=== PATIENT | female | born 1935 | race Caucasian/White ===

== ENCOUNTER 2020-11-01 12:29 | Inpatient (IN) | payer OTHER ==
--- NOTE | 2020-11-01 15:50 | ER ---
Nurse's Notes [facility] Name: Fabiola Infante Age: 85 yrs Sex: Female : 1935 Arrival Date: 11/01/2020 Time: 12:31 Bed 5 Private MD: Diagnosis: Altered mental status, unspecified;UTI/ Urinary tract infection, site not specified-ESBL, Pseudomonas;Dementia in other diseases classified elsewhere without behavioral disturbance Presentation: 11/01 13:00 Chief complaint: Pt's daughter states "she went to an ER in [place] and they called her aa5 today and told her that the antibiotics for the UTI are not working so she needs IV antibiotics". Pt's daughter reports "she's just been tired and weak". 13:00 Coronavirus screen: fatigue. Ebola Screen: Patient negative for fever greater than or aa5 equal to 101.5 degrees Fahrenheit, and additional compatible Ebola Virus Disease symptoms. Initial Sepsis Screen: Does the patient meet any 2 criteria? No. Patient's initial sepsis screen is negative. Does the patient have a suspected source of infection? Yes: Dysuria/Frequency/Urgency/UTI. Risk Assessment: Do you want to hurt yourself or someone else? Unable to obtain. Onset of symptoms was November 01, 2020. 13:00 Acuity: KITTY 3 aa5 13:00 Method Of Arrival: Wheelchair aa5 Historical: - Allergies: 13:03 Aspirin; aa5 - Home Meds: 13:03 Atenolol Oral [Active]; Furosemide Oral [Active]; omeprazole Oral [Active]; Iron CR aa5 Oral [Active]; Potassium Chloride Oral [Active]; - PMHx: 13:03 Pulmonary Fibrosis; Hypertensive disorder; RA; aa5 - Immunization history:: Client reports having NOT received the Covid vaccine. Flu vaccine is up to date. - Social history:: Smoking status: Patient/guardian denies using tobacco. - Family history:: not pertinent. Screenin:35 Abuse screen: Denies threats or abuse. Denies injuries from another. Nutritional hb screening: No deficits noted. Tuberculosis screening: No symptoms or risk factors identified. Fall Risk None identified. Assessment: 15:36 General: Appears in no apparent distress. Behavior is calm, cooperative. Pain: Denies hb pain. Neuro: Level of Consciousness is awake, alert, obeys commands, Oriented to person, place, time, situation, Reports fatigue, generalized weakness. Cardiovascular: Patient's skin is warm and dry. Respiratory: Respiratory effort is even, unlabored, Respiratory pattern is regular, symmetrical. GI: No signs and/or symptoms were reported involving the gastrointestinal system. : No signs and/or symptoms were reported regarding the genitourinary system. EENT: No signs and/or symptoms were reported regarding the EENT system. Derm: Skin is pink, warm \\T\\ dry. Musculoskeletal: No signs and/or symptoms reported regarding the musculoskeletal system. 16:30 Reassessment: Patient appears in no apparent distress at this time. No changes from hb previously documented assessment. Patient is alert, oriented x 3, equal unlabored respirations, skin warm/dry/pink. 17:15 Reassessment: Patient appears in no apparent distress at this time. No changes from hb previously documented assessment. Patient and/or family updated on plan of care and expected duration. Pain level reassessed. Patient is alert, oriented x 3, equal unlabored respirations, skin warm/dry/pink. 18:07 Reassessment: Patient appears in no apparent distress at this time. Patient and/or hb family updated on plan of care and expected duration. Pain level reassessed. Patient is alert, oriented x 3, equal unlabored respirations, skin warm/dry/pink. Vital Signs: 13:00 BP 136 / 68; Pulse 63; Resp 18 S; Temp 98.2(TE); Pulse Ox 99% on 3 lpm NC; aa5 15:20 BP 167 / 83; Pulse 64; Resp 17; Pulse Ox 99% on 3 lpm NC; hb 17:00 BP 153 / 75; Pulse 65; Resp 15; Pulse Ox 97% on 3 lpm NC; hb 18:00 BP 160 / 99; Pulse 74; Resp 18; Pulse Ox 99% on 3 lpm NC; hb ED Course: 12:31 Patient arrived in ED. as 12:58 Arm band placed on. aa5 13:03 Triage completed. aa5 15:10 Inserted saline lock: 20 gauge in right antecubital area, using aseptic technique. hb Blood collected. 15:12 Minh Worrell MD is Attending Physician. izzy 15:35 Jenny Melara RN is Primary Nurse. hb 15:37 Patient has correct armband on for positive identification. Bed in low position. Call light in reach. 15:48 Santiago Dupont is Hospitalizing Provider. izzy 16:33 XRAY Chest (1 view) In Process Unspecified. EDMS 20:08 No provider procedures requiring assistance completed. Patient did not have IV access ea during this emergency room visit. Administered Medications: 16:11 Drug: NS 0.9% 1000 ml Route: IV; Rate: 125 ml/hr; Site: right antecubital; hb 20:09 Follow up: IV Status: Completed infusion; Infusion continued upon admission ea 16:15 Drug: Tobramycin 120 mg Route: IVPB; Infused Over: 30 mins; Site: right antecubital; bp 20:09 Follow up: Response: No adverse reaction; IV Status: Completed infusion ea 16:15 Drug: Rocephin (cefTRIAXone) 1 grams Route: IV; Rate: per protocol; Site: right bp antecubital; 20:09 Follow up: Response: No adverse reaction; IV Status: Completed infusion ea Outcome: 15:50 Decision to Hospitalize by Provider. [facility] 20:08 Admitted to Med/surg accompanied by tech, via stretcher, with chart, Report called to ea Receiving nurse on second floor 20:08 Condition: stable 20:08 Instructed on the need for admit, Demonstrated understanding of instructions. 20:09 Patient left the ED. ea Signatures: Dispatcher [employer] EDMinh Wellington MD MD cha Martinez, Amelia as Calderon, Audri, RN RN aa5 Jenny Melara RN RN Alyse Bell RN RN ea Peltier, Brian RN RN bp
--- NOTE | 2020-11-01 15:50 | EDPHYS ---
Physician Documentation [facility] Name: Fabiola Infante Age: 85 yrs Sex: Female : 1935 Arrival Date: 11/01/2020 Time: 12:31 Bed 5 Private MD: ED Physician Minh Worrell HPI: 11/01 15:43 This 85 yrs old Female presents to ER via Wheelchair with complaints of izzy Urinary Problem - iv antibiotics. 15:43 The patient presents with urinary symptoms, dysuria, frequency, urgency. Onset: The izzy symptoms/episode began/occurred 3 day(s) ago. Modifying factors: The symptoms are alleviated by nothing, the symptoms are aggravated by nothing. Associated signs and symptoms: The patient has no apparent associated signs or symptoms. Severity of symptoms: At their worst the symptoms were mild, in the emergency department the symptoms are unchanged. The patient presents with confusion. Onset: The symptoms/episode began/occurred 3 day(s) ago. Possible causes: CVA or TIA, head injury, low blood sugar, seizure, sepsis, the patient has a known UTI history. The patient is not sexually active. Historical: - Allergies: 13:03 Aspirin; aa5 - Home Meds: 13:03 Atenolol Oral [Active]; Furosemide Oral [Active]; omeprazole Oral [Active]; Iron CR aa5 Oral [Active]; Potassium Chloride Oral [Active]; - PMHx: 13:03 Pulmonary Fibrosis; Hypertensive disorder; RA; aa5 - Immunization history:: Client reports having NOT received the Covid vaccine. Flu vaccine is up to date. - Social history:: Smoking status: Patient/guardian denies using tobacco. - Family history:: not pertinent. ROS: 15:43 Constitutional: Negative for fever, chills, and weight loss, Eyes: Negative for injury, izzy pain, redness, and discharge, ENT: Negative for injury, pain, and discharge, Neck: Negative for injury, pain, and swelling, Cardiovascular: Negative for chest pain, palpitations, and edema, Respiratory: Negative for shortness of breath, cough, wheezing, and pleuritic chest pain, Abdomen/GI: Negative for abdominal pain, nausea, vomiting, diarrhea, and constipation, Back: Negative for injury and pain, Skin: Negative for injury, rash, and discoloration, Neuro: Negative for headache, weakness, numbness, tingling, and seizure, Psych: Negative for depression, anxiety, suicide ideation, homicidal ideation, and hallucinations, Allergy/Immunology: Negative for hives, rash, and allergies, Endocrine: Negative for neck swelling, polydipsia, polyuria, polyphagia, and marked weight changes, Hematologic/Lymphatic: Negative for swollen nodes, abnormal bleeding, and unusual bruising. 15:43 : Positive for urinary symptoms, urinary frequency, small amounts, hematuria, burning with urination, foul smelling urine. Exam: 15:43 Constitutional: This is a well developed, well nourished patient who is awake, alert, izzy and in no acute distress. Head/Face: Normocephalic, atraumatic. Eyes: Pupils equal round and reactive to light, extra-ocular motions intact. Lids and lashes normal. Conjunctiva and sclera are non-icteric and not injected. Cornea within normal limits. Periorbital areas with no swelling, redness, or edema. ENT: Nares patent. No nasal discharge, no septal abnormalities noted. Tympanic membranes are normal and external auditory canals are clear. Oropharynx with no redness, swelling, or masses, exudates, or evidence of obstruction, uvula midline. Mucous membranes moist. Neck: Trachea midline, no thyromegaly or masses palpated, and no cervical lymphadenopathy. Supple, full range of motion without nuchal rigidity, or vertebral point tenderness. No Meningismus. Chest/axilla: Normal chest wall appearance and motion. Nontender with no deformity. No lesions are appreciated. Cardiovascular: Regular rate and rhythm with a normal S1 and S2. No gallops, murmurs, or rubs. Normal PMI, no JVD. No pulse deficits. Respiratory: Lungs have equal breath sounds bilaterally, clear to auscultation and percussion. No rales, rhonchi or wheezes noted. No increased work of breathing, no retractions or nasal flaring. Abdomen/GI: Soft, non-tender, with normal bowel sounds. No distension or tympany. No guarding or rebound. No evidence of tenderness throughout. Back: No spinal tenderness. No costovertebral tenderness. Full range of motion. Skin: Warm, dry with normal turgor. Normal color with no rashes, no lesions, and no evidence of cellulitis. MS/ Extremity: Pulses equal, no cyanosis. Neurovascular intact. Full, normal range of motion. Neuro: Awake and alert, GCS 15, oriented to person, place, time, and situation. Cranial nerves II-XII grossly intact. Motor strength 5/5 in all extremities. Sensory grossly intact. Cerebellar exam normal. Normal gait. Psych: Awake, alert, with orientation to person, place and time. Behavior, mood, and affect are within normal limits. 18:27 ECG was reviewed by the Attending Physician. izzy Vital Signs: 13:00 BP 136 / 68; Pulse 63; Resp 18 S; Temp 98.2(TE); Pulse Ox 99% on 3 lpm NC; aa5 15:20 BP 167 / 83; Pulse 64; Resp 17; Pulse Ox 99% on 3 lpm NC; hb 17:00 BP 153 / 75; Pulse 65; Resp 15; Pulse Ox 97% on 3 lpm NC; hb 18:00 BP 160 / 99; Pulse 74; Resp 18; Pulse Ox 99% on 3 lpm NC; hb MDM: 15:12 Patient medically screened. izzy 15:45 Differential diagnosis: nonspecific abdominal pain, urinary tract infection. izzy Differential Diagnosis: CVA, electrolyte abnormality, hypoglycemia, TIA, UTI, volume depletion. Data reviewed: vital signs, nurses notes, lab test result(s), EKG, radiologic studies, plain films. Data interpreted: radiation monitor: rate is 63 beats/min, Pulse oximetry: is not applicable for this patient encounter. Test interpretation: by ED physician or midlevel provider: ECG, plain radiologic studies. Counseling: I had a detailed discussion with the patient and/or guardian regarding: the historical points, exam findings, and any diagnostic results supporting the discharge/admit diagnosis, lab results, radiology results, the need for further work-up and treatment in the hospital. 11/01 15:42 Order name: Basic Metabolic Panel [facility] 11/01 15:42 Order name: CBC with Diff; Complete Time: 17:03 [facility] 11/01 15:42 Order name: LFT's; Complete Time: 17:03 [facility] 11/01 15:42 Order name: Magnesium; Complete Time: 17:03 11/01 15:42 Order name: NT PRO-BNP; Complete Time: 17:03 [facility] 11/01 15:42 Order name: PT-INR; Complete Time: 17:03 11/01 15:42 Order name: Troponin (emerg Dept Use Only); Complete Time: 17:03 [facility] 11/01 15:42 Order name: XRAY Chest (1 view); Complete Time: 17:03 [facility] 11/01 15:42 Order name: Urine Culture [facility] 11/01 15:42 Order name: COVID-19 : Document "Date of Symptom Onset" if Symptomatic. [facility] 11/01 15:43 Order name: Basic Metabolic Panel; Complete Time: 17:03 [facility] 11/01 17:03 Order name: Urine Dipstick-Ancillary [facility] 11/01 18:37 Order name: SARS-COV-2 RT PCR [facility] 11/01 15:42 Order name: EKG; Complete Time: 15:43 [facility] 11/01 15:42 Order name: Cardiac monitoring; Complete Time: 17:31 [facility] 11/01 15:42 Order name: EKG - Nurse/Tech; Complete Time: 18:04 [facility] 11/01 15:42 Order name: IV Saline Lock; Complete Time: 16:17 [facility] 11/01 15:42 Order name: Labs collected and sent; Complete Time: 16:17 [facility] 11/01 15:42 Order name: O2 Per Protocol; Complete Time: 16:18 [facility] 11/01 15:42 Order name: O2 Sat Monitoring; Complete Time: 16:17 [facility] 11/01 15:42 Order name: Urine Dipstick-Ancillary (obtain specimen); Complete Time: 16:02 [facility] EC:27 Rate is 66 beats/min. Rhythm is regular. QRS Perkins is Normal. UT interval is normal. QRS izzy interval is normal. QT interval is normal. No Q waves. T waves are Normal. No ST changes noted. Clinical impression: NSR w/ Non-specific ST/T Changes and No evidence of ischemia. Interpreted by me. Reviewed by me. Administered Medications: 16:11 Drug: NS 0.9% 1000 ml Route: IV; Rate: 125 ml/hr; Site: right antecubital; hb 20:09 Follow up: IV Status: Completed infusion; Infusion continued upon admission ea 16:15 Drug: Tobramycin 120 mg Route: IVPB; Infused Over: 30 mins; Site: right antecubital; bp 20:09 Follow up: Response: No adverse reaction; IV Status: Completed infusion ea 16:15 Drug: Rocephin (cefTRIAXone) 1 grams Route: IV; Rate: per protocol; Site: right bp antecubital; 20:09 Follow up: Response: No adverse reaction; IV Status: Completed infusion ea Disposition Summary: 11/01/20 15:50 Hospitalization Ordered Hospitalization Status: Inpatient Admission izzy Provider: Santiago Dupont cha Location: Telemetry/MedSurg (Inpatient) izzy Condition: Stable izzy Problem: new izzy Symptoms: have improved izzy Bed/Room Type: Standard [facility] Room Assignment: 219(11/01/20 19:05) em1 Diagnosis - Altered mental status, unspecified izzy - UTI/ Urinary tract infection, site not specified - ESBL, Pseudomonas izzy - Dementia in other diseases classified elsewhere without behavioral disturbance izzy Forms: - Medication Reconciliation Form izzy - SBAR form izzy Signatures: Dispatcher [employer] EDMS Minh Worrell MD MD cha Martinez, Eric em1 Yris Hurt RN RN aa5 Jenny Melara RN RN Nabil Esteves RN RN bp Antunez, Elena RN ea Corrections: (The following items were deleted from the chart) 19:05 15:50 izzy em1
[2020-11-01 16:21] LABS: Absolute Lymphocytes (CBC) 2.5 K/uL (0.7-4.9); Basophils % 0.7 % (0-1.3); Hematocrit 33.8 % (36.0-45.0); Lymphocytes % 25.3 % (15.3-44.8); MPV 8.8 fL (7.6-11.3); RBC Red Blood Cell Count 4.44 M/uL (3.86-4.86)
[2020-11-01 16:22] LABS: Protime INR 1.08
[2020-11-01] MEDS ORDERED: NA CHLORIDE 0.9% 1,000 ML ONE (16:27)
[2020-11-01 16:38] LABS: ALT/SGPT 16 U/L (12-78); AST/SGOT 15 U/L (15-37); Albumin 2.7 g/dL (3.4-5.0); Alkaline Phosphatase 78 U/L (45-117); BUN Blood Urea Nitrogen 12 mg/dL (7-18); Bicarbonate 28 mmol/L (21-32); Bilirubin Direct < 0.1 mg/dL (0-0.2); Bilirubin Total 0.2 mg/dL (0.2-1.0); Glucose Level 118 mg/dL (74-106); Magnesium 1.9 mg/dL (1.8-2.4); NT PRO-BNP 2535 pg/mL (<450); Potassium 4.6 mmol/L (3.5-5.1); Protein, Total 7.5 g/dL (6.4-8.2); Sodium Level 130 mmol/L (136-145); Troponin (Emerg Dept Use Only) < 0.02 ng/mL (0.0-0.045)
--- NOTE | 2020-11-01 16:39 | P.HP ---
Certification for Inpatient Patient admitted to: Inpatient Practitioner: I am a practitioner with admitting privileges, knowledge of patient current condition, hospital course, and medical plan of care. Services: Services provided to patient in accordance with Admission requirements found in Title 42 Section 412.3 of the Code of Federal Regulations Patient History Date of Service: 11/01/20 Reason for admission: Generalize weakness History of Present Illness: 85-year-old woman with a history of rheumatoid arthritis, peripheral edema, hypertension and pulmonary fibrosis presented to the emergency department course her urine culture was growing ESBL Pseudomonas sensitive to only IV antibiotics. According to the daughter patient with a history of recurrent UTI has been progressivelly weak since her most recent diagnosis of UTI. She was prescribed Cipro by her PCP. The PCP called and informed her for urine culture is growing Pseudomonas sensitive to only IV antibiotics and therefore directed her to the emergency department. She denies any dysuria or increased urinary frequency. She endorsed loss of appetite. Daughter states she has been sleeping all day. At baseline she was able to transfer independently but now need assistance with transfer. Blood work shows hyponatremia and microcytic anemia, no leukocytosis. Daughter reports history of MCI and has impaired. A.m. making arrangements for long-term care for her. - Past Medical/Surgical History -: Hypertension -: Rheumatoid arthritis -: Pulmonary fibrosis -: Hysterectomy -: Appendectomy - Social History Smoking Status: Never smoker Alcohol use: No Place of Residence: Home Review of Systems Other: Patient denies any fever, no abdominal pain, no diarrhea, no nausea and vomiting. Except as documented, all other systems reviewed and negative. Physical Examination - Physical Exam General: Alert, In no apparent distress, Oriented x3 HEENT: Normocephalic, Mucous membr. moist/pink, Sclerae nonicteric Neck: Supple, JVD not distended Respiratory: Clear to auscultation bilaterally, Normal air movement Cardiovascular: No edema, Regular rate/rhythm, Normal S1 S2, No murmurs Capillary refill: <2 Seconds Gastrointestinal: Normal bowel sounds, Soft and benign, Non-distended, No tenderness, Other Musculoskeletal: No swelling, No tenderness Integumentary: No rashes, No erythema Neurological: Normal speech, Normal strength at 5/5 x4 extr Lymphatics: No axilla or inguinal lymphadenopathy - Studies Laboratory Data (last 24 hrs) 11/01/20 16:12: PT 12.4, INR 1.08 11/01/20 16:12: WBC 10.00, Hgb 10.9 L, Hct 33.8 L, Plt Count 403 11/01/20 16:12: Sodium 130 L, Potassium 4.6, BUN 12, Creatinine 0.85, Glucose 118 H, Magnesium 1.9, Total Bilirubin 0.2, AST 15, ALT 16, Alkaline Phosphatase 78 Assessment and Plan - Problems (Diagnosis) (1) Pseudomonas urinary tract infection Current Visit: Yes Status: Acute (2) ESBL (extended spectrum beta-lactamase) producing bacteria infection Current Visit: Yes Status: Acute (3) Pulmonary fibrosis Current Visit: Yes Status: Acute (4) Leg edema Current Visit: Yes Status: Acute - Plan Admit to the medical floor. Pseudomonas sensitive to only aminoglycosides. Start IV gentamicin. Obtain blood culture. Consult infectious disease. Repeat UA and urine culture. PT to evaluate. Lasix p.r.n. for peripheral edema. Continue other home medications. - Advance Directives Does patient have a Living Will: No Does patient have a Durable POA for Healthcare: Yes
--- NOTE | 2020-11-01 16:44 | RAD REPORT ---
EXAM DESCRIPTION: RAD - Chest Single View - 11/01/2020 4:33 pm CLINICAL HISTORY: COUGH COMPARISON: No comparisons FINDINGS: Findings likely representing chronic interstitial changes with some areas of confluent air space disease in the left mid lung and left lung base. The heart size is within normal limits.No acut e osseous abnormality. No significant pleural effusions or pneumothorax. Moderate hiatal hernia. IMPRESSION: Suspect chronic interstitial lung changes. A superimposed acute process, in the absence of priors, is difficult to exclude radiographically.
[2020-11-01] MEDS ORDERED: TOBRAMYCIN SULF 80 MG/2 ML VIAL ONE (16:45)
[2020-11-01] MEDS ORDERED: CEFTRIAXONE/SWI 1gm 1 GM/10 ML SYR ONE (16:46)
[2020-11-01] MEDS ORDERED: NA CHLORIDE 0.9% 100 ML ONE (16:46)
[2020-11-01 17:03] LABS: Urine Blood 2+ (Negative); Urine Glucose Negative (Negative); Urine Protein Trace (Negative); Urine pH 5.5 (5.0-7.0)
[2020-11-01] MEDS ORDERED: ONDANSETRON 4 MG/2 ML VIAL IV PRN (20:53)
[2020-11-01] MEDS ORDERED: ACETAMINOPHEN 650MG/RECT SUPP PR PRN (20:53)
[2020-11-01] MEDS: HEPARIN 5000 UNIT/ML 1 ML VIAL SQ SCH (21:00)
[2020-11-01] MEDS ORDERED: GENTAMICIN 80 MG/100 ML BAG 80 MG/100 ML BAG IV SCH (21:00)
[2020-11-01 23:30] VITALS: BMI 27.4
[2020-11-02] MEDS ORDERED: GENTAMICIN SULF 80 MG/2ML INJ ONE (03:34)
[2020-11-02] MEDS: Gentamicin Inj 120 MG in NA CHLORIDE 0.9% 100 ML IV SCH ×2 (05:00→17:20)
[2020-11-02 05:54] LABS: Basophils % 0.5 % (0-1.3); Hematocrit 27.5 % (36.0-45.0); Lymphocytes % 24.3 % (15.3-44.8); MPV 9.1 fL (7.6-11.3); RBC Red Blood Cell Count 3.66 M/uL (3.86-4.86)
[2020-11-02 06:09] LABS: Magnesium 1.9 mg/dL (1.8-2.4); Phosphorus 3.5 mg/dL (2.5-4.9); Potassium 4.5 mmol/L (3.5-5.1)
[2020-11-02] MEDS ORDERED: NA CHLORIDE 0.9% 100 ML ONE (06:24)
[2020-11-02 07:47] LABS: Urine Appearance CLOUDY (Clear); Urine Bilirubin NEGATIVE (Negative); Urine Blood TRACE (Negative); Urine Color YELLOW (Yellow); Urine Glucose NEGATIVE (Negative); Urine Protein NEGATIVE (Negative); Urine Specific Gravity <=1.005 (1.005-1.030); Urine Urobilinogen 0.2 mg/dL (0.2-1.0)
[2020-11-02 08:06] LABS: Urine Bacteria <20 /HPF (<20); Urine Mucus 1+ /HPF (NONE SEEN)
[2020-11-02] MEDS: HEPARIN 5000 UNIT/ML 1 ML VIAL SQ SCH ×2 (09:52→21:41)
[2020-11-02] MEDS ORDERED: HOME MED 1 EA UNK (Omeprazole [Omeprazole] 20 MG Capsule.Dr) PO SCH (11:29)
[2020-11-02] MEDS: atenoloL 50 MG TAB PO SCH (12:13)
[2020-11-02] MEDS: PANTOPRAZOLE 40MG TABLET PO SCH (12:13)
[2020-11-02] MEDS: FERROUS SULFATE 325 MG TAB PO SCH (12:13)
--- NOTE | 2020-11-02 13:12 | P.PN ---
Subjective Date of Service: 11/02/20 Chief Complaint: Generalize weakness Patient reports feeling much better today. She states she feels much stronger. Daughter reports patient was bleeding from her hemorrhoids during bowel movement today. Physical Examination - Vital Signs Temperature: 98.2 F Blood Pressure: 141/67 Pulse: 64 Respirations: 20 Pulse Ox (%): 96 - Physical Exam General: Alert, In no apparent distress, Oriented x3 HEENT: Mucous membr. moist/pink Neck: JVD not distended Respiratory: Clear to auscultation bilaterally, Normal air movement Cardiovascular: No edema, Regular rate/rhythm, Normal S1 S2 Gastrointestinal: Soft and benign, Non-distended, No tenderness Musculoskeletal: No swelling Integumentary: No rashes, No erythema Neurological: Normal strength at 5/5 x4 extr - Studies Laboratory Data (last 24 hrs) 11/01/20 16:12: PT 12.4, INR 1.08 11/01/20 16:12: WBC 10.00, Hgb 10.9 L, Hct 33.8 L, Plt Count 403 11/01/20 16:12: Sodium 130 L, Potassium 4.6, BUN 12, Creatinine 0.85, Glucose 118 H, Magnesium 1.9, Total Bilirubin 0.2, AST 15, ALT 16, Alkaline Phosphatase 78 Assessment And Plan - Current Problems (Diagnosis) (1) Pseudomonas urinary tract infection Current Visit: Yes Status: Acute (2) ESBL (extended spectrum beta-lactamase) producing bacteria infection Current Visit: Yes Status: Acute (3) Pulmonary fibrosis Current Visit: Yes Status: Acute (4) Leg edema Current Visit: Yes Status: Acute - Plan Continue IV gentamicin. UA suggest UTI Follow blood culture and repeat urine culture Infectious disease consulted. PT to evaluate. Lasix p.r.n. for peripheral edema. Continue iron therapy for iron deficiency. Monitor for active bleeding. Outpatient evaluation for the hemorrhoids if no significant bleeding episode occur during the hospital stay. May need to treat the UTI before any invasive procedure. Continue other home medications.
[2020-11-03 04:12] LABS: Absolute Lymphocytes (CBC) 1.8 K/uL (0.7-4.9); Basophils % 0.7 % (0-1.3); Hematocrit 28.8 % (36.0-45.0); Lymphocytes % 24.8 % (15.3-44.8); MPV 8.9 fL (7.6-11.3); RBC Red Blood Cell Count 3.85 M/uL (3.86-4.86)
[2020-11-03 04:18] LABS: Potassium 4.1 mmol/L (3.5-5.1)
[2020-11-03] MEDS: Gentamicin Inj 120 MG in NA CHLORIDE 0.9% 100 ML IV SCH (05:43)
[2020-11-03] MEDS: PANTOPRAZOLE 40MG TABLET PO SCH (09:02)
[2020-11-03] MEDS: atenoloL 50 MG TAB PO SCH (09:02)
[2020-11-03] MEDS: FERROUS SULFATE 325 MG TAB PO SCH (09:02)
[2020-11-03] MEDS: HEPARIN 5000 UNIT/ML 1 ML VIAL SQ SCH ×2 (09:02→20:43)
--- NOTE | 2020-11-03 14:16 | P.PN ---
Subjective Date of Service: 11/03/20 Chief Complaint: Generalize weakness Patient reports feeling much better today. She is transferring with minimum assistance. Physical Examination - Vital Signs Temperature: 97.9 F Blood Pressure: 127/62 Pulse: 62 Respirations: 18 Pulse Ox (%): 98 - Physical Exam General: Alert, In no apparent distress, Oriented x3 HEENT: Mucous membr. moist/pink Neck: JVD not distended Respiratory: Clear to auscultation bilaterally, Normal air movement Cardiovascular: No edema, Regular rate/rhythm, Normal S1 S2 Gastrointestinal: Soft and benign, Non-distended Musculoskeletal: No swelling Integumentary: No rashes Neurological: Normal strength at 5/5 x4 extr Assessment And Plan - Current Problems (Diagnosis) (1) Pseudomonas urinary tract infection Current Visit: Yes Status: Acute (2) ESBL (extended spectrum beta-lactamase) producing bacteria infection Current Visit: Yes Status: Acute (3) Pulmonary fibrosis Current Visit: Yes Status: Acute (4) Leg edema Current Visit: Yes Status: Acute - Plan Continue IV gentamicin. Monitor gentamicin level and renal function. Repeat urine culture shows mixed growth Infectious disease consulted to assist with management. Place PICC line for outpatient IV antibiotics Lasix p.r.n. for peripheral edema. Continue iron therapy for iron deficiency. Continue PT. Monitor for active bleeding. Outpatient evaluation for the hemorrhoids if no significant bleeding episode occur during the hospital stay. Continue other home medications.
--- NOTE | 2020-11-03 15:40 | RAD REPORT ---
EXAM DESCRIPTION: RAD - Chest Single View - 11/03/2020 2:45 pm CLINICAL HISTORY: picc line placement COMPARISON: Chest Single View dated 11/01/2020 FINDINGS: Bilateral interstitial and airspace disease which is similar to slightly increased compare d with 11/01/2020. Cardiomegaly. Hiatal hernia. Right subclavian approach PICC with tip overlying the distal brachiocephalic vein cardiomegaly peerNo acute osseous abnormality. No definite pleural effus ions. No pneumothorax per IMPRESSION: 1. Right subclavian approach PICC with tip overlying the distal right brachiocephalic ve in. Would suggest advancing by 6 centimeters. 2. Bilateral interstitial and airspace disease, portion of which is likely chronic, however there irvin s appear to be mild interval worsening compared with 11/01/2020. Pneumonia difficult to exclude.
--- NOTE | 2020-11-03 17:34 | RAD REPORT ---
EXAM DESCRIPTION: RAD - Chest Single View - 11/03/2020 5:28 pm CLINICAL HISTORY: picc line placement COMPARISON: Chest Single View dated 11/03/2020; Chest Single View dated 11/01/2020 FINDINGS: The right subclavian approach PICC tip now terminates overlying the superior cavoatrial ju nction in good position. IMPRESSION: Right subclavian approach PICC with tip in good position overlying the superior cavoatri al junction
[2020-11-03] MEDS: NA CHLORIDE 0.9% IV SCH (18:00)
[2020-11-03] MEDS: GENTAMICIN IV SCH (18:00)
[2020-11-04 04:17] LABS: Absolute Lymphocytes (CBC) 2.7 K/uL (0.7-4.9); Basophils % 1.2 % (0-1.3); Hematocrit 27.4 % (36.0-45.0); Lymphocytes % 29.7 % (15.3-44.8); MPV 8.5 fL (7.6-11.3); RBC Red Blood Cell Count 3.67 M/uL (3.86-4.86)
[2020-11-04 04:32] LABS: Potassium 4.1 mmol/L (3.5-5.1)
[2020-11-04] MEDS: GENTAMICIN IV SCH ×2 (04:48→17:00)
[2020-11-04] MEDS: NA CHLORIDE 0.9% IV SCH ×2 (04:48→17:00)
[2020-11-04] MEDS: atenoloL 50 MG TAB PO SCH (08:51)
[2020-11-04] MEDS: FERROUS SULFATE 325 MG TAB PO SCH (08:51)
[2020-11-04] MEDS: PANTOPRAZOLE 40MG TABLET PO SCH (08:52)
[2020-11-04] MEDS: HEPARIN 5000 UNIT/ML 1 ML VIAL SQ SCH ×2 (08:52→20:39)
--- NOTE | 2020-11-04 15:03 | P.PN ---
Subjective Date of Service: 11/04/20 Chief Complaint: Generalize weakness Patient has no complain today. She states she feels better and stronger. Physical Examination - Vital Signs Temperature: 97.3 F Blood Pressure: 127/60 Pulse: 59 Respirations: 17 Pulse Ox (%): 98 - Physical Exam General: In no apparent distress, Oriented x3 HEENT: Mucous membr. moist/pink Respiratory: Clear to auscultation bilaterally, Normal air movement Cardiovascular: No edema, Regular rate/rhythm Gastrointestinal: Soft and benign, Non-distended Musculoskeletal: No swelling Neurological: Normal strength at 5/5 x4 extr Assessment And Plan - Current Problems (Diagnosis) (1) Pseudomonas urinary tract infection Current Visit: Yes Status: Acute (2) ESBL (extended spectrum beta-lactamase) producing bacteria infection Current Visit: Yes Status: Acute (3) Pulmonary fibrosis Current Visit: Yes Status: Acute (4) Leg edema Current Visit: Yes Status: Acute - Plan Continue IV gentamicin. Monitor gentamicin level and renal function. Repeat urine culture growing Klebsiella sensitive to gentamicin is. Infectious disease consulted to assist with management. PICC line placed for outpatient IV antibiotics Lasix p.r.n. for peripheral edema. Continue iron therapy for iron deficiency. Continue PT. No active bleeding. Outpatient evaluation for the hemorrhoids if no significant bleeding episode occur during the hospital stay.
[2020-11-05] MEDS: NA CHLORIDE 0.9% IV SCH ×2 (05:32→17:52)
[2020-11-05] MEDS: GENTAMICIN IV SCH ×2 (05:32→17:52)
[2020-11-05] MEDS: FERROUS SULFATE 325 MG TAB PO SCH (09:56)
[2020-11-05] MEDS: HEPARIN 5000 UNIT/ML 1 ML VIAL SQ SCH ×2 (09:56→21:46)
[2020-11-05] MEDS: PANTOPRAZOLE 40MG TABLET PO SCH (09:56)
[2020-11-05] MEDS: atenoloL 50 MG TAB PO SCH (09:56)
[2020-11-05 13:45] LABS: Urine Appearance TURBID (Clear); Urine Bilirubin NEGATIVE (Negative); Urine Blood 3+ (Negative); Urine Color YELLOW (Yellow); Urine Glucose NEGATIVE (Negative); Urine Protein 2+ (Negative); Urine pH 6.5 (5.0-7.0)
[2020-11-05 14:42] LABS: Urine Bacteria <20 /HPF (<20)
--- NOTE | 2020-11-05 14:47 | P.PN ---
Subjective Date of Service: 11/05/20 Chief Complaint: Generalize weakness Patient has no complain today. She has been transferring with some assistance and ambulating with a walker. Physical Examination - Vital Signs Temperature: 98.3 F Blood Pressure: 135/65 Pulse: 59 Respirations: 16 Pulse Ox (%): 99 - Physical Exam General: In no apparent distress HEENT: Mucous membr. moist/pink Neck: Supple, JVD not distended Respiratory: Clear to auscultation bilaterally, Normal air movement Cardiovascular: Regular rate/rhythm, Normal S1 S2 Gastrointestinal: Soft and benign, Non-distended Musculoskeletal: No erythema Integumentary: No rashes Neurological: Normal strength at 5/5 x4 extr Assessment And Plan - Current Problems (Diagnosis) (1) Pseudomonas urinary tract infection Current Visit: Yes Status: Acute (2) ESBL (extended spectrum beta-lactamase) producing bacteria infection Current Visit: Yes Status: Acute (3) Pulmonary fibrosis Current Visit: Yes Status: Acute (4) Leg edema Current Visit: Yes Status: Acute - Plan Continue IV gentamicin. Monitor gentamicin level and renal function. Repeat urine culture growing Klebsiella sensitive to gentamicin. Patient seen by Infectious disease. She will complete 1 week of IV gentamicin. PICC line placed for outpatient IV antibiotics Lasix p.r.n. for peripheral edema. Continue iron therapy for iron deficiency. Continue PT. No active bleeding. Outpatient evaluation for the hemorrhoids if no significant bleeding episode occur during the hospital stay.
[2020-11-06] MEDS: GENTAMICIN IV SCH ×2 (04:10→16:30)
[2020-11-06] MEDS: NA CHLORIDE 0.9% IV SCH ×2 (04:10→16:30)
[2020-11-06 05:50] LABS: Hematocrit 28.6 % (36.0-45.0); MPV 8.6 fL (7.6-11.3)
[2020-11-06 07:20] LABS: Magnesium 1.9 mg/dL (1.8-2.4)
[2020-11-06] MEDS: HEPARIN 5000 UNIT/ML 1 ML VIAL SQ SCH ×2 (09:43→22:01)
[2020-11-06] MEDS: FERROUS SULFATE 325 MG TAB PO SCH (09:43)
[2020-11-06] MEDS: atenoloL 50 MG TAB PO SCH (09:43)
[2020-11-06] MEDS: PANTOPRAZOLE 40MG TABLET PO SCH (09:43)
[2020-11-06] MEDS: FUROSEMIDE 40 MG TABLET PO SCH (09:45)
--- NOTE | 2020-11-06 10:34 | P.PN ---
Subjective Date of Service: 11/06/20 Chief Complaint: Generalize weakness Patient seen examined at bedside, doing well no acute complaints. Review of Systems 10-point ROS is otherwise unremarkable Physical Examination - Vital Signs Temperature: 100.4 F Blood Pressure: 116/74 Pulse: 65 Respirations: 16 Pulse Ox (%): 98 - Physical Exam General: Alert, In no apparent distress, Oriented x3 HEENT: Atraumatic, Normocephalic Neck: Supple, 2+ carotid pulse no bruit Respiratory: Clear to auscultation bilaterally, Normal air movement Cardiovascular: No edema, Normal pulses Capillary refill: <2 Seconds Gastrointestinal: Normal bowel sounds, Soft and benign Integumentary: No rashes, No breakdown, No significant lesion - Studies Laboratory Last Values WBC 10.00 K/uL (4.3-10.9) 11/01/20 16:12 RBC 4.44 M/uL (3.86-4.86) 11/01/20 16:12 Hgb 10.9 g/dL (12.0-15.0) L 11/01/20 16:12 Hct 33.8 % (36.0-45.0) L 11/01/20 16:12 MCV 76.2 fL (80-100) L 11/01/20 16:12 MCH 24.6 pg (27.0-35.0) L 11/01/20 16:12 MCHC 32.3 g/dL (32.0-36.0) 11/01/20 16:12 RDW 18.9 % (12.1-15.2) H 11/01/20 16:12 Plt Count 403 K/uL (152-406) 11/01/20 16:12 MPV 8.8 fL (7.6-11.3) 11/01/20 16:12 Neutrophils % 65.8 % (41.7-73.7) 11/01/20 16:12 Lymphocytes % 25.3 % (15.3-44.8) 11/01/20 16:12 Monocytes % 6.5 % (3.3-12.3) 11/01/20 16:12 Eosinophils % 1.7 % (0-4.4) 11/01/20 16:12 Basophils % 0.7 % (0-1.3) 11/01/20 16:12 Absolute Neutrophils 6.6 K/uL (1.8-8.0) 11/01/20 16:12 Absolute Lymphocytes 2.5 K/uL (0.7-4.9) 11/01/20 16:12 Absolute Monocytes 0.7 K/uL (0.1-1.3) 11/01/20 16:12 Absolute Eosinophils 0.2 K/uL (0-0.5) 11/01/20 16:12 Absolute Basophils 0.1 K/uL (0-0.5) 11/01/20 16:12 PT 12.4 SECONDS (9.5-12.5) 11/01/20 16:12 INR 1.08 11/01/20 16:12 Sodium 130 mmol/L (136-145) L 11/01/20 16:12 Potassium 4.6 mmol/L (3.5-5.1) 11/01/20 16:12 Chloride 96 mmol/L (98-107) L 11/01/20 16:12 Carbon Dioxide 28 mmol/L (21-32) 11/01/20 16:12 BUN 12 mg/dL (7-18) 11/01/20 16:12 Creatinine 0.85 mg/dL (0.55-1.3) 11/01/20 16:12 Estimated GFR 64 mL/min (=/>90) L 11/01/20 16:12 Glucose 118 mg/dL (74-106) H 11/01/20 16:12 Calcium 8.7 mg/dL (8.5-10.1) 11/01/20 16:12 Magnesium 1.9 mg/dL (1.8-2.4) 11/01/20 16:12 Total Bilirubin 0.2 mg/dL (0.2-1.0) 11/01/20 16:12 Direct Bilirubin < 0.1 mg/dL (0-0.2) 11/01/20 16:12 AST 15 U/L (15-37) 11/01/20 16:12 ALT 16 U/L (12-78) 11/01/20 16:12 Alkaline Phosphatase 78 U/L (45-117) 11/01/20 16:12 Rapid Troponin I < 0.02 ng/mL (0.0-0.045) 11/01/20 16:12 NT-Pro-B Natriuret Pep 2535 pg/mL (<450) H 11/01/20 16:12 Serum Total Protein 7.5 g/dL (6.4-8.2) 11/01/20 16:12 Albumin 2.7 g/dL (3.4-5.0) L 11/01/20 16:12 Globulin 4.8 g/dL (2.3-3.5) H 11/01/20 16:12 Albumin/Globulin Ratio 0.6 (1.1-1.8) L 11/01/20 16:12 Assessment And Plan - Plan Assessment -multi-drug resistant ESBL urinary tract infection -anemia -protein caloric malnutrition -renal insufficiency -pulmonary fibrosis Plan -Per chart review cultures performed at a different facility grew multi-drug resistant ESBL Pseudomonas sensitive only to gentamicin. Repeat urinary culture grew Klebsiella on 11/01, repeat urinary analysis on 11/05 positive for urinary tract infection. Continue on gentamicin for 1 week. Continue to closely mon itor patient for adverse side effects. Continue to closely monitor renal function. -medical management per primary -continue monitor CBC and BMP -continue to monitor for signs of infection Plan of care discussed with Dr. Claire Thank you for consultation
--- NOTE | 2020-11-06 15:41 | P.PN ---
Subjective Date of Service: 11/06/20 Chief Complaint: Generalize weakness Subjective: No new changes (reports overall feeling ok, no significant change overnight. reportedly had temporal temperature: 100.4, but recheck without intervention was normal. Patient without dysuria, no nausea/vomiting. Does report a lower back itchy rash that she has had whil she has been hospitalized. attributes to bed) Review of Systems 10-point ROS is otherwise unremarkable Physical Examination - Vital Signs Temperature: 98.9 F Blood Pressure: 156/74 Pulse: 70 Respirations: 16 Pulse Ox (%): 96 Assessment & Plan Physician Review Additional Text: Physical Exam General: In no apparent distress, AAOx3 HEENT: Mucous membr. moist/pink, normal conjunctiva Respiratory: Clear to auscultation bilaterally, Normal air movement Cardiovascular: Regular rate/rhythm, Normal S1 S2 Gastrointestinal: Soft nontender, nondistended Integumentary: mild erythematous rash on lower back, nontender Neurological: Normal strength at 5/5 x4 extr Assessment And Plan acute cystitis secondary to ESBL pseudomonas and Klebsiella Pulmonary fibrosis Iron deficiency continue IV gentamicin OSH Urine culture and urine on admission growing different bacteria (ESBL pseudomonas and klebsiella), both fairly resistant. both are sensitive to gentamicin ID consulted, recommends 1 week of IV gent PICC line placed continue iron therapy for iron def Continue IV gentamicin. Monitor gentamicin level and renal function. Repeat urine culture growing Klebsiella sensitive to gentamicin. Patient seen by Infectious disease. She will complete 1 week of IV gentamicin. PICC line placed for outpatient IV antibiotics Lasix p.r.n. for peripheral edema. Continue iron therapy for iron deficiency. Continue PT. Dispo: SNF for IV antibiotics/PT. awaiting approva; Time Spent Managing Pts Care (In Minutes): 35
[2020-11-07] MEDS: GENTAMICIN IV SCH ×2 (05:21→17:36)
[2020-11-07] MEDS: NA CHLORIDE 0.9% IV SCH ×2 (05:21→17:36)
[2020-11-07 06:13] LABS: Absolute Lymphocytes (CBC) 2.9 K/uL (0.7-4.9); Basophils % 0.5 % (0-1.3); Hematocrit 28.6 % (36.0-45.0); Lymphocytes % 30.1 % (15.3-44.8)
[2020-11-07 06:21] LABS: Potassium 4.1 mmol/L (3.5-5.1)
--- NOTE | 2020-11-07 09:12 | RAD REPORT ---
EXAM DESCRIPTION: RAD - Chest Single View - 11/07/2020 6:46 am CLINICAL HISTORY: hypoxia, f/u opacities, h/o pulm fibrosis Chest pain. COMPARISON: Chest Single View dated 11/03/2020; Chest Single View dated 11/03/2020; Chest Single View dated 11/01/2020 FINDINGS: Portable technique limits examination quality. Fibrotic changes are present throughout the lungs. Interstitial opacities, greater on the left, appea r stable since comparative study. The heart is mildly enlarged in size. Right-sided PICC line has tip in the SVC. IMPRESSION: Stable chest since 11/03/2020.
[2020-11-07] MEDS: FERROUS SULFATE 325 MG TAB PO SCH (09:40)
[2020-11-07] MEDS: PANTOPRAZOLE 40MG TABLET PO SCH (09:41)
[2020-11-07] MEDS: atenoloL 50 MG TAB PO SCH (09:41)
[2020-11-07] MEDS: FUROSEMIDE 40 MG TABLET PO SCH (09:41)
[2020-11-07] MEDS: HEPARIN 5000 UNIT/ML 1 ML VIAL SQ SCH ×2 (09:42→21:41)
--- NOTE | 2020-11-07 09:59 | P.PN ---
Subjective Date of Service: 11/07/20 Chief Complaint: Generalize weakness Patient seen examined at bedside, doing well-no acute complaints. Tolerating antibiotic well. Review of Systems 10-point ROS is otherwise unremarkable Physical Examination - Vital Signs Temperature: 99.0 F Blood Pressure: 151/68 Pulse: 68 Respirations: 18 Pulse Ox (%): 99 Assessment And Plan - Plan Physical exam: General: Alert, In no apparent distress, Oriented x3 HEENT: Atraumatic, Normocephalic Neck: Supple, 2+ carotid pulse no bruit Respiratory: Clear to auscultation bilaterally, Normal air movement Cardiovascular: No edema, Normal pulses Capillary refill: <2 Seconds Gastrointestinal: Normal bowel sounds, Soft and benign Integumentary: No rashes, No breakdown, No significant lesion Assessment -multi-drug resistant ESBL urinary tract infection -anemia -protein caloric malnutrition -renal insufficiency -pulmonary fibrosis Plan -Per chart review cultures performed at a different facility grew multi-drug resistant ESBL Pseudomonas sensitive only to gentamicin. Repeat urinary culture grew Klebsiella on 11/01, repeat urinary analysis on 11/05 positive for urinary tract infection. Continue on gentamicin for 1 week. Continue to closely monitor patient for adverse side effects. Continue to closely monitor renal function. Continue to monitor gentamicin peek and trough, pharmacy ordering labs. -medical management per primary -continue monitor CBC and BMP -continue to monitor for signs of infection Plan of care discussed with Dr. Claire Thank you for consultation Physician Review Additional Text: Physical Exam General: In no apparent distress, AAOx3 HEENT: Mucous membr. moist/pink, normal conjunctiva Respiratory: Clear to auscultation bilaterally, Normal air movement Cardiovascular: Regular rate/rhythm, Normal S1 S2 Gastrointestinal: Soft nontender, nondistended Integumentary: mild erythematous rash on lower back, nontender Neurological: Normal strength at 5/5 x4 extr Assessment And Plan acute cystitis secondary to ESBL pseudomonas and Klebsiella Pulmonary fibrosis Iron deficiency continue IV gentamicin OSH Urine culture and urine on admission growing different bacteria (ESBL pseudomonas and klebsiella), both fairly resistant. both are sensitive to gentamicin ID consulted, recommends 1 week of IV gent PICC line placed continue iron therapy for iron def Continue IV gentamicin. Monitor gentamicin level and renal function. Repeat urine culture growing Klebsiella sensitive to gentamicin. Patient seen by Infectious disease. She will complete 1 week of IV gentamicin. PICC line placed for outpatient IV antibiotics Chidi p.r.annie for peripheral edema. Continue iron therapy for iron deficiency. Continue PT. Dispo: SNF for IV antibiotics/PT. awaiting approva;
--- NOTE | 2020-11-07 10:51 | P.PN ---
Subjective Date of Service: 11/07/20 Chief Complaint: Generalize weakness Subjective: No new changes (feeling well, breathing comfortably on chronic 3L NC, denies dysuria, no pelvic/abd pain, no nausea/vomiting) Review of Systems 10-point ROS is otherwise unremarkable Physical Examination - Vital Signs Temperature: 99.0 F Blood Pressure: 151/68 Pulse: 68 Respirations: 18 Pulse Ox (%): 99 Assessment & Plan Physician Review Additional Text: Physical Exam General: In no apparent distress, AAOx3 HEENT: Mucous membr. moist/pink, normal conjunctiva Respiratory: Clear to auscultation bilaterally, Normal air movement Cardiovascular: Regular rate/rhythm, Normal S1 S2, no edema Gastrointestinal: Soft nontender, nondistended Integumentary: no rash Assessment And Plan acute cystitis secondary to ESBL pseudomonas and Klebsiella Pulmonary fibrosis Iron deficiency continue IV gentamicin OSH Urine culture and urine on admission growing different bacteria (ESBL pseudomonas and klebsiella), both fairly resistant. both are sensitive to gentamicin ID consulted, recommends 1 week of IV gent PICC line placed continue iron therapy for iron def Continue IV gentamicin. Monitor gentamicin level and renal function. Continue PT. Dispo: SNF for IV antibiotics/PT. awaiting insurance auth Time Spent Managing Pts Care (In Minutes): 35
[2020-11-07 22:21] VITALS: O2SAT 98
[2020-11-08] MEDS: NA CHLORIDE 0.9% IV SCH ×2 (05:54→16:01)
[2020-11-08] MEDS: GENTAMICIN IV SCH ×2 (05:54→16:01)
[2020-11-08] MEDS ORDERED: NA CHLORIDE 0.9% 0 ML ONE (06:09)
[2020-11-08] MEDS: FERROUS SULFATE 325 MG TAB PO SCH (08:56)
[2020-11-08] MEDS: atenoloL 50 MG TAB PO SCH (08:57)
[2020-11-08] MEDS: FUROSEMIDE 40 MG TABLET PO SCH (08:57)
[2020-11-08] MEDS: PANTOPRAZOLE 40MG TABLET PO SCH (08:57)
[2020-11-08] MEDS: HEPARIN 5000 UNIT/ML 1 ML VIAL SQ SCH (08:58)
--- NOTE | 2020-11-08 10:16 | P.PN ---
Subjective Date of Service: 11/08/20 Chief Complaint: Generalize weakness Patient seen and examined at bedside, resting comfortably. Denies nausea, vomiting, diarrhea. States she feels fine. No new labs to review yet today. Review of Systems 10-point ROS is otherwise unremarkable Physical Examination - Vital Signs Temperature: 98.8 F Blood Pressure: 163/73 Pulse: 71 Respirations: 24 Pulse Ox (%): 97 - Studies Laboratory Last Values WBC 10.00 K/uL (4.3-10.9) 11/01/20 16:12 RBC 4.44 M/uL (3.86-4.86) 11/01/20 16:12 Hgb 10.9 g/dL (12.0-15.0) L 11/01/20 16:12 Hct 33.8 % (36.0-45.0) L 11/01/20 16:12 MCV 76.2 fL (80-100) L 11/01/20 16:12 MCH 24.6 pg (27.0-35.0) L 11/01/20 16:12 MCHC 32.3 g/dL (32.0-36.0) 11/01/20 16:12 RDW 18.9 % (12.1-15.2) H 11/01/20 16:12 Plt Count 403 K/uL (152-406) 11/01/20 16:12 MPV 8.8 fL (7.6-11.3) 11/01/20 16:12 Neutrophils % 65.8 % (41.7-73.7) 11/01/20 16:12 Lymphocytes % 25.3 % (15.3-44.8) 11/01/20 16:12 Monocytes % 6.5 % (3.3-12.3) 11/01/20 16:12 Eosinophils % 1.7 % (0-4.4) 11/01/20 16:12 Basophils % 0.7 % (0-1.3) 11/01/20 16:12 Absolute Neutrophils 6.6 K/uL (1.8-8.0) 11/01/20 16:12 Absolute Lymphocytes 2.5 K/uL (0.7-4.9) 11/01/20 16:12 Absolute Monocytes 0.7 K/uL (0.1-1.3) 11/01/20 16:12 Absolute Eosinophils 0.2 K/uL (0-0.5) 11/01/20 16:12 Absolute Basophils 0.1 K/uL (0-0.5) 11/01/20 16:12 PT 12.4 SECONDS (9.5-12.5) 11/01/20 16:12 INR 1.08 11/01/20 16:12 Sodium 130 mmol/L (136-145) L 11/01/20 16:12 Potassium 4.6 mmol/L (3.5-5.1) 11/01/20 16:12 Chloride 96 mmol/L (98-107) L 11/01/20 16:12 Carbon Dioxide 28 mmol/L (21-32) 11/01/20 16:12 BUN 12 mg/dL (7-18) 11/01/20 16:12 Creatinine 0.85 mg/dL (0.55-1.3) 11/01/20 16:12 Estimated GFR 64 mL/min (=/>90) L 11/01/20 16:12 Glucose 118 mg/dL (74-106) H 11/01/20 16:12 Calcium 8.7 mg/dL (8.5-10.1) 11/01/20 16:12 Magnesium 1.9 mg/dL (1.8-2.4) 11/01/20 16:12 Total Bilirubin 0.2 mg/dL (0.2-1.0) 11/01/20 16:12 Direct Bilirubin < 0.1 mg/dL (0-0.2) 11/01/20 16:12 AST 15 U/L (15-37) 11/01/20 16:12 ALT 16 U/L (12-78) 11/01/20 16:12 Alkaline Phosphatase 78 U/L (45-117) 11/01/20 16:12 Rapid Troponin I < 0.02 ng/mL (0.0-0.045) 11/01/20 16:12 NT-Pro-B Natriuret Pep 2535 pg/mL (<450) H 11/01/20 16:12 Serum Total Protein 7.5 g/dL (6.4-8.2) 11/01/20 16:12 Albumin 2.7 g/dL (3.4-5.0) L 11/01/20 16:12 Globulin 4.8 g/dL (2.3-3.5) H 11/01/20 16:12 Albumin/Globulin Ratio 0.6 (1.1-1.8) L 11/01/20 16:12 Assessment And Plan - Plan Physical exam: General: Alert, In no apparent distress, Oriented x3 HEENT: Atraumatic, Normocephalic Neck: Supple, 2+ carotid pulse no bruit Respiratory: Clear to auscultation bilaterally, Normal air movement Cardiovascular: No edema, Normal pulses Capillary refill: <2 Seconds Gastrointestinal: Normal bowel sounds, Soft and benign Integumentary: No rashes, No breakdown, No significant lesion Assessment -multi-drug resistant ESBL urinary tract infection -anemia -protein caloric malnutrition -renal insufficiency -pulmonary fibrosis Plan -Per chart review cultures performed at a different facility grew multi-drug resistant ESBL Pseudomonas sensitive only to gentamicin. Repeat urinary culture grew Klebsiella on 11/01, repeat urinary analysis on 11/05 positive for urinary tract infection. Continue on gentamicin for 1 week. Continue to closely monitor patient for adverse side effects. Continue to closely monitor renal function. Continue to monitor gentamicin peek and trough, pharmacy ordering labs. -medical management per primary -continue monitor CBC and BMP -continue to monitor for signs of infection Plan of care discussed with Dr. Claire Thank you for consultation
--- NOTE | 2020-11-08 14:44 | P.PN ---
Subjective Date of Service: 11/08/20 Chief Complaint: Generalize weakness Subjective: No new changes (doing well, no new complaints, awaiting approval) Review of Systems 10-point ROS is otherwise unremarkable Physical Examination - Vital Signs Temperature: 98.0 F Blood Pressure: 133/64 Pulse: 63 Respirations: 20 Pulse Ox (%): 98 Assessment & Plan Physician Review Additional Text: Physical Exam General: In no apparent distress, AAOx3 HEENT: Mucous membr. moist/pink, normal conjunctiva Respiratory: Clear to auscultation bilaterally, Normal air movement Cardiovascular: Regular rate/rhythm, Normal S1 S2, no edema Gastrointestinal: Soft nontender, nondistended Integumentary: no rash Assessment And Plan acute cystitis secondary to ESBL pseudomonas and Klebsiella Pulmonary fibrosis Iron deficiency continue IV gentamicin OSH Urine culture and urine on admission growing different bacteria (ESBL pseudomonas and klebsiella), both fairly resistant. both are sensitive to gentamicin ID consulted, recommends 1 week of IV gent PICC line placed continue iron therapy for iron def Continue IV gentamicin. Monitor gentamicin level and renal function. Continue PT. Dispo: SNF for IV antibiotics/PT. awaiting insurance auth Time Spent Managing Pts Care (In Minutes): 35
--- NOTE | 2020-11-08 15:46 | P.DS ---
Admission Date: 11/01/20 Discharge Date: 11/08/20 Disposition: TRANSFER TO SNF - MEDICAL Discharge Condition: GOOD Reason for Admission: Generalize weakness Consultations: ID - Dr. Claire Procedures: CXR (11/01): Findings likely representing chronic interstitial changes with some areas of confluent airspace disease in the left mid lung and left lung base. The heart size is within normal limits.No acute osseous abnormality. No significant pleural effusions or pneumothorax. Moderate hiatal hernia. IMPRESSION: Suspect chronic interstitial lung changes. A superimposed acute process, in the absence of priors, is difficult to exclude radiographically. CXR (11/03): 1. Right subclavian approach PICC with tip overlying the distal right brachiocephalic vein. Would suggest advancing by 6 centimeters. 2. Bilateral interstitial and airspace disease, portion of which is likely chronic, however there does appear to be mild interval worsening compared with 11/01/2020. Pneumonia difficult to exclude. CXR (11/07): Fibrotic changes are present throughout the lungs. Interstitial opacities, greater on the left, appear stable since comparative study. The heart is mildly enlarged in size. Right-sided PICC line has tip in the SVC. Problem List acute cystitis secondary to ESBL pseudomonas and Klebsiella Pulmonary fibrosis Iron deficiency Brief History of Present Illness: 85-year-old woman with a history of rheumatoid arthritis, peripheral edema, hypertension and pulmonary fibrosis presented to the emergency department course her urine culture was growing ESBL Pseudomonas sensitive to only IV antibiotics. According to the daughter patient with a history of recurrent UTI has been progressivelly weak since her most recent diagnosis of UTI. She was prescribed Cipro by her PCP. The PCP called and informed her for urine culture is growing Pseudomonas sensitive to only IV antibiotics and therefore directed her to the emergency department. She denies any dysuria or increased urinary frequency. She endorsed loss of appetite. Daughter states she has been sleeping all day. At baseline she was able to transfer independently but now need assistance with transfer. Blood work shows hyponatremia and microcytic anemia, no leukocytosis. Hospital Course: Patient was treated with IV gentamicin to cover for both bacteria. ID was consulted and recommended a total of 7 days since last positive culture (11/05). PICC line was placed and patient improved. She was discharged to SNF to continue IV antibiotics. She is to follow up with PCP in 3-5 days of discharge from SNF. Vital Signs/Physical Exam: Physical Exam General: In no apparent distress HEENT: Mucous membr. moist/pink, normal conjunctiva Respiratory: Clear to auscultation bilaterally, Normal air movement Cardiovascular: Regular rate/rhythm, Normal S1 S2, no edema Gastrointestinal: Soft nontender, nondistended Integumentary: no rash Temp Pulse Resp BP Pulse Ox 98.0 F 63 20 133/64 98 11/08/20 14:44 11/08/20 14:44 11/08/20 14:44 11/08/20 14:44 11/08/20 14:44 Laboratory Data at Discharge: WBC 9.60 K/uL (4.3-10.9) 11/07/20 05:29 Hgb 9.5 g/dL (12.0-15.0) L 11/07/20 05:29 Hct 28.6 % (36.0-45.0) L 11/07/20 05:29 Plt Count 273 K/uL (152-406) 11/07/20 05:29 PT 12.4 SECONDS (9.5-12.5) 11/01/20 16:12 INR 1.08 11/01/20 16:12 Sodium 139 mmol/L (136-145) 11/07/20 05:29 Potassium 4.1 mmol/L (3.5-5.1) 11/07/20 05:29 BUN 14 mg/dL (7-18) 11/07/20 05:29 Creatinine 0.81 mg/dL (0.55-1.3) 11/07/20 05:29 Glucose 85 mg/dL (74-106) 11/07/20 05:29 Phosphorus 3.5 mg/dL (2.5-4.9) 11/02/20 05:02 Magnesium 2.0 mg/dL (1.8-2.4) 11/07/20 05:29 Total Bilirubin 0.2 mg/dL (0.2-1.0) 11/01/20 16:12 AST 15 U/L (15-37) 11/01/20 16:12 ALT 16 U/L (12-78) 11/01/20 16:12 Alkaline Phosphatase 78 U/L (45-117) 11/01/20 16:12 Home Medications: Acetaminophen [Tylenol Extra Strength] 500 mg PO PRN PRN 11/02/20 Atenolol [Tenormin] 50 mg PO DAILY 11/02/20 Furosemide [Lasix*] 40 mg PO DAILY 11/02/20 Ibuprofen [Advil] 200 mg PO PRN PRN 11/02/20 Iron 65 mg PO DAILY 11/02/20 Omeprazole 20 mg PO DAILY 11/02/20 Gentamicin 110 mg IV Q12H 4 Days 11/08/20 New Medications: Gentamicin 110 mg IV Q12H 4 Days Physician Discharge Instructions: PROBLEM: Multi-drug resistant UTI GOAL: Clear understanding of disease process INSTRUCTIONS: - You were found to have a multi-drug resistant urinary tract infection. You were treated with IV gentamicin, and will need a total of 1 week of this medication since your last positive urine culture. Last day of antibiotics will be 11/12. - Gentamicin 110mg IV Q12H x 4 days. - Check Gentamicin level before every 3rd dose. Check BMP and CBC weekly. - Remove PICC line after antibiotic completion. PICC Line Care: - Dressing change due at 11/10/20, then every week and/or PRN. - Change injection caps every week using aseptic technique. - Flush with 10mL NS after IVPB medications. - Flush with 20mL NS after blood draws. - Flush unused ports with 10mL NS BID. Diet: Heart healthy Activity: As tolerated COMMUNITY SERVICES Services Needed: Assisted Name of Company: [facility] Date or Referral: 11/05/20 IMMUNIZATION Influenza Vaccine Indicated: Influenza Vaccine Given: Date Given: Pneumonia Vaccine Indicated: No Pneumonia Vaccine Given: Date Given: Diet: AHA Activity: Ad lobo Time spent managing pt's care (in minutes): 45
[2020-11-08 17:43] VITALS: BP 122/66; TEMP 98.3
== END 2020-11-08 18:09 | DRG 690 ==
LOC: ER 12:29 → ERHOLD 16:34 → 2ND 20:05
PROVIDERS: ADMIT Internal Medicine; ATTEND Internal Medicine
PROC: 05H533Z Insertion of Infusion Device into Right Subclavian Vein, Percutaneous Approach (ICD-10-PCS; principal; 2020-11-03)
DX: N30.00 Acute cystitis without hematuria (principal); Z16.12 Extended spectrum beta lactamase (ESBL) resistance; E46 Unspecified protein-calorie malnutrition; B96.5 Pseudomonas (aeruginosa) (mallei) (pseudomallei) as the cause of diseases classified elsewhere; B96.1 Klebsiella pneumoniae [K. pneumoniae] as the cause of diseases classified elsewhere; J84.10 Pulmonary fibrosis, unspecified; R60.0 Localized edema; M06.9 Rheumatoid arthritis, unspecified; I10 Essential (primary) hypertension; E61.1 Iron deficiency; Z68.27 Body mass index [BMI] 27.0-27.9, adult; Z99.81 Dependence on supplemental oxygen; Z20.822 Contact with and (suspected) exposure to COVID-19
CPT/HCPCS: 36415; 71045; 80048; 80076; 80170; 81001; 81003; 83735; 83880; 84100; 84484; 85025; 85027; 85610; 87040; 87077; 87086; 87088; 87186; 93005; 94760; 96365; 96366; 96368; 97116; 97161; 97530; 99285; J0696; J1580; J1644; J3260; J7030; U0003